=== PATIENT | female | born 1970 | race Two or more races ===

== ENCOUNTER 2018-10-12 08:15 | Inpatient (IN) | payer OTHER ==
[~2018-10-12] VITALS: Ht 165.1 cm; Wt 74.8 kg
[2018-10-12] MEDS ORDERED: EUCERIN DAILY400 ML (09:45)
[2018-10-19] MEDS ORDERED: NAPR500T14 PO (08:52)
[2018-10-19] MEDS ORDERED: AMOX-CLAV 875-1 EACH PO (08:52)
[2018-10-19] MEDS ORDERED: IRON1TAB4 PO (08:53)
== END 2018-10-19 09:21 | disposition home or self-care (01) | DRG 742 ==
LOC: O/R 10-15 06:47 → OB/GYN 10-15 06:47 → SURH 10-15 08:15 → OB/GYN 10-15 13:16 → SURH 10-15 19:15 → OB/GYN 10-19 09:21
PROVIDERS: ADMIT Obstetrics & Gynecology
PROC: 0UT70ZZ Resection of Bilateral Fallopian Tubes, Open Approach (ICD-10-PCS; 2018-10-15)
PROC: 0W3N0ZZ Control Bleeding in Female Perineum, Open Approach (ICD-10-PCS; 2018-10-15)
PROC: 0TJB8ZZ Inspection of Bladder, Via Natural or Artificial Opening Endoscopic (ICD-10-PCS; 2018-10-15)
PROC: 30233N1 Transfusion of Nonautologous Red Blood Cells into Peripheral Vein, Percutaneous Approach (ICD-10-PCS; 2018-10-15)
PROC: 0UT90ZZ Resection of Uterus, Open Approach (ICD-10-PCS; principal; 2018-10-15 19:15)
DX: D25.1 Intramural leiomyoma of uterus (principal); K66.1 Hemoperitoneum; D62 Acute posthemorrhagic anemia; D25.2 Subserosal leiomyoma of uterus; D25.0 Submucous leiomyoma of uterus; I95.81 Postprocedural hypotension